=== PATIENT | male | born 1965 ===

== ENCOUNTER 2017-01-26 13:49 | Emergency (ER) | payer MEDICAID, OTHER ==
[2017-01-26 14:21] VITALS: BP 165/85; PULSE 82; RESP 18; TEMP 97.9; O2SAT 99
--- NOTE | 2017-01-26 14:52 | C.PDOC ---
History Of Present Illness 51 y/o male presents to ED requesting medication refill. Patient states he is taking Prednisone 10mg daily for rheumatoid arthritis x 1 year and ran out, last time he took was Thursday and is noting joint swelling to hands and feet. Notes he has had recent labs and evaluation with nephrology. No other complaints at this time. Time Seen by Provider: 01/26/17 14:18 Chief Complaint (Nursing): Med Refill History Per: Patient History/Exam Limitations: no limitations Onset/Duration Of Symptoms: Days Current Symptoms Are (Timing): Still Present Past Medical History Reviewed: Historical Data, Nursing Documentation, Vital Signs Vital Signs: Last Vital Signs Temp 97.9 F 01/26/17 14:18 Pulse 82 01/26/17 14:18 Resp 18 01/26/17 14:18 BP 165/85 H 01/26/17 14:18 Pulse Ox 99 01/26/17 15:01 - Medical History PMH: Rheumatoid Arthritis (on prednisone daily for "awhile") Surgical History: No Surg Hx Family History: States: No Known Family Hx - Social History Hx Alcohol Use: Yes Hx Substance Use: No - Immunization History Hx Tetanus Toxoid Vaccination: No Hx Influenza Vaccination: No Hx Pneumococcal Vaccination: No Review Of Systems Constitutional: Negative for: Fever, Chills Musculoskeletal: Positive for: Hand Pain, Foot Pain Skin: Negative for: Rash Neurological: Negative for: Weakness, Numbness Physical Exam - Physical Exam Appears: Non-toxic, No Acute Distress Skin: Normal Color, Warm, Dry, No Rash Head: Atraumatic, Normacephalic Eye(s): bilateral: Normal Inspection, EOMI Nose: Normal Oral Mucosa: Moist Neck: Normal ROM, Supple Chest: Symmetrical Cardiovascular: Rhythm Regular Respiratory: Normal Breath Sounds, No Accessory Muscle Use, No Rales, No Rhonchi , No Wheezing Extremity: Normal ROM, Capillary Refill (<2 seconds), No Deformity, Other ((+) mild joint swelling to hands b/l with some chronic deformity noted) Extremity: Bilateral: Atraumatic, Normal Color And Temperature Pulses: Left Radial: Normal, Right Radial: Normal Neurological/Psych: Oriented x3, Normal Motor, Normal Sensation ED Course And Treatment O2 Sat by Pulse Oximetry: 99 (RA) Pulse Ox Interpretation: Normal Progress Note: Discussed concern for prolonged steriod use and abrupt stopping. Instructed strict jacqui sosa RA specialist. Case discussed with Dr Arzola , agreed upon plan and discharge. Disposition - Disposition Disposition: HOME/ ROUTINE Disposition Time: 14:50 Condition: STABLE Additional Instructions: care home steroid use should not be stopped abruptly therefore you will get a refill on your prescription. It will only last for 10 days therefore your should see your doctor prior to running out again. roasterman use of steroid has negative side effects on the body, have strict follow up with your doctor and regular blood work. Prescriptions: predniSONE [predniSONE Tab] 10 mg PO DAILY #10 tab Instructions: Rheumatoid Arthritis (ED) Forms: [employer] (Kuwaiti) - Clinical Impression Clinical Impression: Rheumatoid arteritis - PA / OCCUPANCY SPECIALIST / Resident Statement MD/DO has reviewed & agrees with the documentation as recorded. - Scribe Statement The provider has reviewed the documentation as recorded by the Maoibsanaz Cervantes All medical record entries made by the Maoibsanaz were at my direction and personally dictated by me. I have reviewed the chart and agree that the record accurately reflects my personal performance of the history, physical exam, medical decision making, and the department course for this patient. I have also personally directed, reviewed, and agree with the discharge instructions and disposition.
== END 2017-01-26 15:19 | disposition home or self-care (01) ==
LOC: C.ER 13:49
DX: M06.9 Rheumatoid arthritis, unspecified (principal)

== ENCOUNTER 2017-03-30 10:54 | Emergency (ER) | payer MEDICAID ==
--- NOTE | 2017-03-30 13:03 | CT ---
PROCEDURE: CT ORBITS WITHOUT CONTRAST. HISTORY: r/o fx (trauma to upper incisors) COMPARISON: None available. TECHNIQUE: Axial CT images of the orbits were obtained. Coronal and sagittal reformats were generated. Radiation dose: Total exam DLP = 798.29 mGy-cm. This CT exam was performed using one or more of the following dose reduction techniques: Automated exposure control, adjustment of the mA and/or kV according to patient size, and/or use of iterative reconstruction technique. FINDINGS: RIGHT ORBIT: RIGHT BONY ORBIT: No acute fracture or destructive bony lesion identified. RIGHT INTRAORBITAL STRUCTURES: Globe: Positive for exopthalmos. Extraocular muscles: Normal. Post septal space: Normal. Optic Nerve: Normal. Lacrimal Apparatus: Normal. RIGHT PRESEPTAL SOFT TISSUES: Normal. LEFT ORBIT: LEFT BONY ORBIT: No acute fracture or destructive bony lesion identified. LEFT INTRAORBITAL STRUCTURES: Globe: Positive for exopthalmos. Extraocular muscles: Normal. Post septal space: Normal Optic Nerve: Normal. . Lacrimal Apparatus: Normal. LEFT PRESEPTAL SOFT TISSUES: Normal. OTHER: Through the left central incisor appears somewhat explosive level maxilla and a minimal fracture of the anterior wall maxilla is not completely excluded. IMPRESSION: 1. No orbital fracture identified bilaterally. An incidental fracture of the left maxilla minimally overlying the left central incisor root is difficult to exclude versus erosion from infectious or inflammatory apicitis. 2. Bilateral exophthalmos identified of indeterminate etiology. Extraocular muscles appear normal in thickness but thyroid ophthalmopathy is not completely excluded nevertheless. Other etiologies are possible. No gross mass is seen in the intra or extraconal spaces.
[2017-03-30 13:25] VITALS: BP 159/88; PULSE 82; RESP 18; TEMP 98.2; O2SAT 99
--- NOTE | 2017-03-30 14:49 | C.PDOC ---
History Of Present Illness 51yo male, presents to ED for evaluation of pain to his mouth after he slipped and fell in the shower. Patient denies any head injury, loss of consciousness. Patient also denies any dizziness or pre-syncopal episodes prior to the fall. Patient has no other medical complaints. - HPI Time Seen by Provider: 03/30/17 11:32 Chief Complaint (Nursing): Trauma History Per: Patient History/Exam Limitations: no limitations Onset/Duration Of Symptoms: Days Injury Occurred (Timing): Days Ago: (3) Past Medical History Reviewed: Historical Data, Nursing Documentation, Vital Signs Vital Signs: Last Vital Signs Temp 98.2 F 03/30/17 13:24 Pulse 82 03/30/17 13:24 Resp 18 03/30/17 13:24 BP 159/88 H 03/30/17 13:24 Pulse Ox 99 03/30/17 14:50 - Medical History PMH: HTN, Rheumatoid Arthritis (on prednisone daily for "awhile") Surgical History: No Surg Hx Family History: States: Unknown Family Hx - Social History Hx Alcohol Use: Yes Hx Substance Use: No - Immunization History Hx Tetanus Toxoid Vaccination: No Hx Influenza Vaccination: No Hx Pneumococcal Vaccination: No Review Of Systems Except As Marked, All Systems Reviewed And Found Negative. ENT: Positive for: Mouth Pain Neurological: Negative for: Headache, Dizziness, Other (loss of consciousness) Physical Exam - Physical Exam Appears: Non-toxic, No Acute Distress Skin: Normal Color Head: Atraumatic, Normacephalic Eye(s): bilateral: Normal Inspection Nose: Normal Oral Mucosa: Moist Tongue: Normal Appearing Lips: Normal Appearing Teeth: Normal Dentition (tooth 9 pushed posteriorly and found to be sevure into gumline) Gingiva: Normal Appearing Throat: Normal Neck: Supple Cardiovascular: Rhythm Regular Respiratory: Normal Breath Sounds Neurological/Psych: Oriented x3 ED Course And Treatment O2 Sat by Pulse Oximetry: 99 (RA) Pulse Ox Interpretation: Normal Progress Note: Patient given instructions to follow up with a dentist. Disposition - Disposition Referrals: [facility] [Outside] [facility] [Outside] [facility] Rocio Rebella, [Non-Staff] - Disposition: HOME/ ROUTINE Disposition Time: 13:00 Condition: GOOD Additional Instructions: Thank you for letting us take care of you today. The emergency medical care you received today was directed at your acute symptoms. If you were prescribed any medication, please fill it and take as directed. It may take several days for your symptoms to resolve. Return to the Emergency Department if your symptoms worsen, do not improve, or if you have any other problems. Please contact your doctor or call one of the physicians/clinics you have been referred to that are listed on the Patient Visit Information form that is included in your discharge packet. Bring any paperwork you were given at discharge with you along with any medications you are taking to your follow up visit. Our treatment cannot replace ongoing medical care by a primary care provider (PCP) outside of the emergency department. Thank you for allowing the [facility] team to be part of your care today. Follow up with a dentist in 1-2 days for outpatient care and management. Prescriptions: Clindamycin [Cleocin] 300 mg PO Q6 #28 cap Instructions: Acute Dental Trauma (ED) - Clinical Impression Clinical Impression: Dental trauma - Scribe Statement The provider has reviewed the documentation as recorded by the Ivonne Rosen Provider Attestation: All medical record entries made by the Ivonne were at my direction and personally dictated by me. I have reviewed the chart and agree that the record accurately reflects my personal performance of the history, physical exam, medical decision making, and the department course for this patient. I have also personally directed, reviewed, and agree with the discharge instructions and disposition.
== END 2017-03-30 14:06 | disposition home or self-care (01) ==
LOC: C.ER 10:54
DX: S09.93XA Unspecified injury of face, initial encounter (principal); W01.0XXA Fall on same level from slipping, tripping and stumbling without subsequent striking against object, initial encounter; Y93.E1 Activity, personal bathing and showering; I10 Essential (primary) hypertension; M06.9 Rheumatoid arthritis, unspecified

== ENCOUNTER 2017-06-23 17:21 | Emergency (ER) | payer MEDICAID ==
[2017-06-23 17:30] VITALS: BP 111/76; PULSE 99; RESP 20; TEMP 100.7; O2SAT 97
--- NOTE | 2017-06-23 17:43 | C.PDOC ---
History Of Present Illness 51 y/o male presents to the ER complaining of a rash to buttocks for 1 week. Also requesting a refill for prednisone 10 mg BID. Missed his last follow up appointment at [facility] rheumatology 2 weeks ago. Patient states he is pending a visit in 3 days. Time Seen by Provider: 06/23/17 17:33 Chief Complaint (Nursing): Abnormal Skin Integrity History Per: Patient History/Exam Limitations: no limitations Onset/Duration Of Symptoms: Days (x 1 week) Current Symptoms Are (Timing): Still Present Past Medical History Reviewed: Historical Data, Nursing Documentation, Vital Signs Vital Signs: Last Vital Signs Temp 100.7 F H 06/23/17 17:26 Pulse 99 H 06/23/17 17:26 Resp 20 06/23/17 17:26 BP 111/76 06/23/17 17:26 Pulse Ox 97 06/23/17 17:43 - Medical History PMH: HTN, Rheumatoid Arthritis (on prednisone daily for "awhile") Family History: States: No Known Family Hx - Social History Hx Alcohol Use: Yes Hx Substance Use: No - Immunization History Hx Tetanus Toxoid Vaccination: No Hx Influenza Vaccination: No Hx Pneumococcal Vaccination: No Review Of Systems Except As Marked, All Systems Reviewed And Found Negative. Constitutional: Negative for: Fever, Chills Skin: Positive for: Rash (to buttocks) Physical Exam - Physical Exam Appears: Non-toxic, No Acute Distress Skin: Warm, Dry, Rash (Buttocks: 20 x 20 cm darkened patches with leading edge crusting and dry skin. Consistent w/ tinea corpus on bilateral buttocks) Head: Atraumatic, Normacephalic Eye(s): bilateral: PERRL, EOMI, Other (Conjunctival injection) Nose: Normal Neck: Normal ROM, Supple Chest: Symmetrical Cardiovascular: Rhythm Regular, No Murmur Respiratory: Normal Breath Sounds, No Accessory Muscle Use Extremity: Normal ROM, No Other (bony abnormalities or joint abnormalities) Neurological/Psych: Oriented x3, Normal Speech ED Course And Treatment O2 Sat by Pulse Oximetry: 97 (RA) Pulse Ox Interpretation: Normal Medical Decision Making Medical Decision Making: Impression: Painless fungal rash/tinea corporis on perirectal/buttocks area- symmetrical- prob related to immunosuppressed state of prednisone use. Pt states ran out of Prednisone 10 mg PO BID for "years" for RA normal joints noted has f/u with Rheum @ [facility] in 3 days - will refill until then with one stat dose. Disposition Doctor Will See Patient In The: Office Counseled Patient/Family Regarding: Studies Performed, Diagnosis, Need For Followup, Rx Given - Disposition Disposition: HOME/ ROUTINE Disposition Time: 17:42 Condition: GOOD Additional Instructions: sigue Prednisone 10 mg dos veces al pierre hasta goncalves visita en [facility] en 3 eldridge Eleonora Corporis: hongo del piel Ketoconazole inguento 2 veces al pierre por 7 elrdidge. Prescriptions: Ketoconazole 2% Cr [Nizoral] 15 applic TOP BID #1 tube predniSONE [predniSONE Tab] 10 mg PO BID #7 tab Instructions: Skin Rash, Where to Get Help Paying for Your Prescriptions Forms: [employer] (North Korean) Print Language: MAORI - POA Present On Arrival: None - Clinical Impression Clinical Impression: Medication refill, Body rash - Scribe Statement The provider has reviewed the documentation as recorded by the Scribe (Princess Thomason) Provider Attestation: All medical record entries made by the Scribe were at my direction and personally dictated by me. I have reviewed the chart and agree that the record accurately reflects my personal performance of the history, physical exam, medical decision making, and the department course for this patient. I have also personally directed, reviewed, and agree with the discharge instructions and disposition.
== END 2017-06-23 17:59 | disposition home or self-care (01) ==
LOC: C.ER 17:21
DX: Z76.0 Encounter for issue of repeat prescription (principal); R21 Rash and other nonspecific skin eruption; I10 Essential (primary) hypertension; M06.9 Rheumatoid arthritis, unspecified

== ENCOUNTER 2017-08-07 18:04 | Emergency (ER) | payer MEDICAID ==
[2017-08-07 18:15] VITALS: BP 123/80; PULSE 83; RESP 20; TEMP 98.3; O2SAT 100
--- NOTE | 2017-08-07 18:29 | C.PDOC ---
History Of Present Illness 51-YEAR-OLD MALE, PRESENTS TO THE EMERGENCY DEPARTMENT WITH REQUESTING STAPLE REMOVAL. S/P PLACEMENT 3 SEEMA SCALP 07/30 @ [facility]. DENIES PAIN, SWELLING, DC TO AREA EXAM NAD SKIN 3 SEEMA INTACT L PARIETAL SCALP. NO ERYTHEMA, SWELL, NONTEND. PROC 3 SEEMA REMOVED WO DIFF. PT TOLERATED WELL. Time Seen by Provider: 08/07/17 18:26 Chief Complaint (Nursing): Suture/Staple Removal History Per: Patient History/Exam Limitations: no limitations Past Medical History Reviewed: Historical Data, Nursing Documentation, Vital Signs Vital Signs: Last Vital Signs Temp 98.3 F 08/07/17 18:14 Pulse 83 08/07/17 18:14 Resp 20 08/07/17 18:14 BP 123/80 08/07/17 18:14 Pulse Ox 100 08/07/17 18:29 - Medical History PMH: HTN, Rheumatoid Arthritis (on prednisone daily for "awhile") Family History: States: No Known Family Hx - Social History Hx Alcohol Use: Yes Hx Substance Use: No - Immunization History Hx Tetanus Toxoid Vaccination: No Hx Influenza Vaccination: No Hx Pneumococcal Vaccination: No Review Of Systems Constitutional: Negative for: Fever Physical Exam - Physical Exam Appears: Non-toxic, No Acute Distress Skin: Warm, Dry, Other ( 3 SEEMA INTACT L PARIETAL SCALP. NO ERYTHEMA, SWELL, NONTEND. ) ED Course And Treatment O2 Sat by Pulse Oximetry: 100 Medical Decision Making Medical Decision Makin SEEMA REMOVED WO DIFF. PT TOLERATED WELL. Disposition Counseled Patient/Family Regarding: Diagnosis, Need For Followup - Disposition Referrals: YOUR,PMD [Other] Disposition: HOME/ ROUTINE Disposition Time: 18:28 Condition: IMPROVED Instructions: Staple Removal Forms: [employer] (Sami) - Clinical Impression Clinical Impression: Removal of staple - Scribe Statement The provider has reviewed the documentation as recorded by the Scribe (Juan Ramon Ragland) All medical record entries made by the Scribe were at my direction and personally dictated by me. I have reviewed the chart and agree that the record accurately reflects my personal performance of the history, physical exam, medical decision making, and the department course for this patient. I have also personally directed, reviewed, and agree with the discharge instructions and disposition.
== END 2017-08-07 18:45 | disposition home or self-care (01) ==
LOC: C.ER 18:04
DX: Z48.02 Encounter for removal of sutures (principal)

== ENCOUNTER 2017-09-21 18:06 | Emergency (ER) | payer MEDICAID ==
[2017-09-21 18:24] VITALS: BP 166/94; PULSE 85; RESP 20; TEMP 98; O2SAT 100
--- NOTE | 2017-09-21 19:04 | C.PDOC ---
History Of Present Illness 52-year-old male, whose PMHx includes rheumatoid arthritis, presents to the ED for evaluation of bilateral eye redness which began 3 days ago. Patient believes symptoms are caused by his allergies. He denies eye discharge, vision change, or foreign body sensation. Patient also complains of pain and swelling to his left knee for 3 days. Patient also notes he has had a rash to his arms and legs for the past week regarding which he states, "I didn't even notice until you pointed it out." Patient reports he missed his RA appointment last week and is requesting a refill for his prednisone and methotrexate. Patient states he took his last dose yesterday. Patient states he has been taking Prednisone for "years." He states his doctor is decreasing his dosage from 20mg to 10mg. Patient denies fever, sob, chest pain, visual changes, difficulty breathing/swallowing, dysuria, penile discharge, hematuria, or pain when urinating. Time Seen by Provider: 09/21/17 18:31 Chief Complaint (Nursing): Med Refill History Per: Patient History/Exam Limitations: no limitations Onset/Duration Of Symptoms: Hrs Current Symptoms Are (Timing): Still Present Additional History Per: Patient Past Medical History Reviewed: Historical Data, Nursing Documentation, Vital Signs Vital Signs: Last Vital Signs Temp 98.0 F 09/21/17 18:21 Pulse 85 09/21/17 18:21 Resp 20 09/21/17 18:21 BP 166/94 H 09/21/17 18:21 Pulse Ox 100 09/21/17 20:58 - Medical History PMH: HTN, Rheumatoid Arthritis (on prednisone daily for "awhile") Surgical History: No Surg Hx Family History: States: Unknown Family Hx - Social History Hx Alcohol Use: Yes Hx Substance Use: No - Immunization History Hx Tetanus Toxoid Vaccination: No Hx Influenza Vaccination: No Hx Pneumococcal Vaccination: No Review Of Systems Constitutional: Negative for: Fever, Chills Eyes: Positive for: Redness (bilaterally ). Negative for: Pain, Vision Change, Other (foreign body sensation ) Respiratory: Negative for: Shortness of Breath Genitourinary: Negative for: Dysuria, Hematuria, Penile Discharge Skin: Positive for: Rash Physical Exam - Physical Exam Appears: Non-toxic, No Acute Distress Skin: Warm, Dry, Other (dark erythematous macules varying from 1cm to 4cm to bilateral upper and lower extremities ) Head: Atraumatic, Normacephalic Eye(s): bilateral: PERRL, EOMI, Other (moderate conjunctival injection ) Nose: Normal Oral Mucosa: Moist Tongue: No Swelling Lips: No Swelling Throat: Normal, No Erythema, No Exudate Neck: Normal ROM, Supple Chest: Symmetrical, No Deformity, No Tenderness Cardiovascular: Rhythm Regular Respiratory: Normal Breath Sounds, No Rales, No Rhonchi, No Wheezing Gastrointestinal/Abdominal: Soft, No Tenderness Extremity: Normal ROM, Tenderness (mild, diffuse to left knee ), Capillary Refill (less than 2 seconds ), No Swelling, Other (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 On re-examination, patient is resting comfortably, showing no signs of distress and is stable for discharge. Case discussed and patient evaluated by Dr. Bautista, who agreed upon plan and discharge. Patient is advised to f/u with his RA physician this week and is instructed to return if symptoms persist or worsen. Disposition - Disposition Disposition: HOME/ ROUTINE Disposition Time: 18:56 Condition: STABLE Additional Instructions: Follow up with your him director in 1-2 days. Return to ER if symptoms persist or worsen. Prescriptions: Ketorolac Ophthalmic 1 drop OU QID 7 Days Methotrexate 5 mg PO DAILY #7 tab predniSONE [predniSONE Tab] 10 mg PO DAILY #7 tab Instructions: Rheumatoid Arthritis (DC) Forms: [employer] (Spanish) - Clinical Impression Clinical Impression: Medication refill, Rheumatoid arthritis - PA / SUPERVISOR WINTER / Resident Statement MD/DO has reviewed & agrees with the documentation as recorded. - Scribe Statement The provider has reviewed the documentation as recorded by the Scribe (Donna Barber) All medical record entries made by the Scribe were at my direction and personally dictated by me. I have reviewed the chart and agree that the record accurately reflects my personal performance of the history, physical exam, medical decision making, and the department course for this patient. I have also personally directed, reviewed, and agree with the discharge instructions and disposition.
== END 2017-09-21 19:12 | disposition home or self-care (01) ==
LOC: C.ER 18:06
DX: Z76.0 Encounter for issue of repeat prescription (principal); M06.9 Rheumatoid arthritis, unspecified